=== PATIENT | female | born 1940 | race Two or more races ===

== ENCOUNTER 2020-08-08 10:59 | Inpatient (IN) | payer OTHER ==
[~2020-08-08] VITALS: Ht 160 cm; Wt 56.7 kg
[2020-08-08] MEDS ORDERED: GLIMEPIRIDE1 MG (11:13)
[2020-08-08] MEDS ORDERED: VOLTAREN100 GM (11:14)
[2020-08-09] MEDS ORDERED: DOXAZOSIN MESYLA4 MG (15:20)
[2020-08-09] MEDS ORDERED: CARVEDILOL12.5 M1 (15:20)
[2020-08-09] MEDS ORDERED: ISOSORBIDE MONO30 M2 (15:21)
[2020-08-09] MEDS ORDERED: LOSARTAN POTAS100 MG (15:21)
[2020-08-09] MEDS ORDERED: RESTORIL15 MG (15:21)
[2020-08-09] MEDS ORDERED: SIMVASTATIN40 MG (15:21)
== END 2020-08-27 23:23 | disposition home or self-care (01) | DRG 240 ==
LOC: ER 10:59 → MEDJ 22:57 → MEDI 22:57 → EDBD 22:57 → SEC-K 22:57 → MEDJ 08-09 11:33 → MEDI 08-10 15:44
PROVIDERS: Specialist; ADMIT Internal Medicine; ATTEND Internal Medicine
PROC: B44HZZZ Ultrasonography of Bilateral Lower Extremity Arteries (ICD-10-PCS; 2020-08-08)
PROC: 0Y6H0Z1 Detachment at Right Lower Leg, High, Open Approach (ICD-10-PCS; principal; 2020-08-20 10:30)
PROC: 30233N1 Transfusion of Nonautologous Red Blood Cells into Peripheral Vein, Percutaneous Approach (ICD-10-PCS; 2020-08-22)
DX: I70.261 Atherosclerosis of native arteries of extremities with gangrene, right leg (principal); L03.115 Cellulitis of right lower limb; E11.52 Type 2 diabetes mellitus with diabetic peripheral angiopathy with gangrene; E11.69 Type 2 diabetes mellitus with other specified complication; S90.211A Contusion of right great toe with damage to nail, initial encounter; I11.9 Hypertensive heart disease without heart failure; I25.10 Atherosclerotic heart disease of native coronary artery without angina pectoris; G30.1 Alzheimer's disease with late onset; F02.80 Dementia in other diseases classified elsewhere, unspecified severity, without behavioral disturbance, psychotic disturbance, mood disturbance, and anxiety; Z20.822 Contact with and (suspected) exposure to COVID-19; B96.89 Other specified bacterial agents as the cause of diseases classified elsewhere